=== PATIENT | female | born 2000 | race Caucasian/White ===

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

== ENCOUNTER 2018-03-29 23:18 | Emergency (ER) | payer SELFPAY ==
[~2018-03-29] VITALS: Ht 170.2 cm; Wt 72.6 kg
[~2018-03-29 23:18] MED LIST changes: +CEPH-507 PO; +PRD20T PO
[2018-03-29 23:22] VITALS: BP 108/79
[2018-03-29] MEDS ORDERED: LACTATED RINGERS 1,000 ML IV ONE (23:28)
[2018-03-29] MEDS ORDERED: TETANUS,DIPTH,PERTUSS P/F (BOOSTRIX) 0.5 ML VIAL IM STA (23:28)
[2018-03-29 23:42] LABS: BASOPHILS # (AUTO) 0.1 10^3/uL (0.0-0.1); BASOPHILS % (AUTO) 1 % (0-10); EOSINOPHILS # (AUTO) 0.2 10^3/uL (0.0-0.3); EOSINOPHILS % (AUTO) 2 % (0-10); HEMATOCRIT 37 % (35-52); HEMOGLOBIN 13.5 G/DL (11.5-16.0); LYMPHOCYTES # (AUTO) 3.6 X 10^3 (1.0-4.0); LYMPHOCYTES % (AUTO) 41 % (12-44); MEAN CORPUSCULAR HEMOGLOBIN 31 PG (25-34); MEAN CORPUSCULAR HGB CONC 37 G/DL (32-36); MEAN CORPUSCULAR VOLUME 85 FL (80-99); MEAN PLATELET VOLUME 9.5 FL (7.4-10.4); MONOCYTES # (AUTO) 0.8 X 10^3 (0.0-1.0); MONOCYTES % (AUTO) 9 % (0-12); NEUTROPHILS # (AUTO) 4.1 X 10^3 (1.8-7.8); NEUTROPHILS % (AUTO) 47 % (42-75); PLATELET COUNT 270 10^3/uL (130-400); RED BLOOD COUNT 4.32 10^6/uL (4.35-5.85); RED CELL DISTRIBUTION WIDTH 13.2 % (10.0-14.5); WHITE BLOOD COUNT 8.7 10^3/uL (4.3-11.0)
[2018-03-29 23:58] LABS: ALANINE AMINOTRANSFERASE 14 U/L (0-55); ALBUMIN 4.4 GM/DL (3.2-4.5); ALKALINE PHOSPHATASE 69 U/L (40-136); AMYLASE 24 U/L (25-125); BILIRUBIN,TOTAL 0.5 MG/DL (0.1-1.0); BUN/CREATININE RATIO 12; CALCIUM 9.1 MG/DL (8.5-10.1); CARBON DIOXIDE 19 MMOL/L (21-32); CHLORIDE 110 MMOL/L (98-107); CREATININE SERUM 0.84 MG/DL (0.60-1.30); GFR ESTIMATED > 60; GLUCOSE 99 MG/DL (70-105); LIPASE 16 U/L (8-78); MAGNESIUM 2.5 MG/DL (1.8-2.4); POTASSIUM 3.4 MMOL/L (3.6-5.0); SODIUM 140 MMOL/L (135-145); TOTAL PROTEIN 6.6 GM/DL (6.4-8.2)
[2018-03-29 23:59] LABS: INR 1.1 (0.8-1.4); PROTHROMBIN TIME PATIENT 13.8 SEC (12.2-14.7)
[2018-03-30] MEDS ORDERED: RX-MUPIROCIN (BACTROBAN) 2% OINT 22 GM TUBE TOP STA (00:57)
[2018-03-30] MEDS ORDERED: RX-MUPIROCIN (BACTROBAN) 2% OINT 22 GM TUBE ONE (00:58)
[2018-03-30] MEDS ORDERED: NS 250 ML (IVPB) BAG IV ONE (01:15)
[2018-03-30] MEDS ORDERED: IOHEXOL 350 MG/ML 100 ML (OMNIPAQUE 350) VIAL IV ONE (01:15)
[2018-03-30 01:29] LABS: BILIRUBIN,URINE NEGATIVE (NEGATIVE); CLARITY,URINE CLEAR; COLOR,URINE YELLOW; GLUCOSE, URINE (UA) NEGATIVE (NEGATIVE); KETONES,URINE 2+ (NEGATIVE); LEUKOCYTE ESTERASE ,URINE 1+ (NEGATIVE); NITRITE,URINE NEGATIVE (NEGATIVE); PH,URINE 7 (5-9); PROTEIN,URINE 2+ (NEGATIVE); UROBILINOGEN,URINE 1 MG/DL (NORMAL)
[2018-03-30 01:31] LABS: BACTERIA,URINE TRACE /HPF; WBC,URINE 0-2 /HPF
[2018-03-30 01:37] LABS: AMPHETAMINE SCREEN, URINE POSITIVE (NEGATIVE); BARBITURATE SCREEN URINE NEGATIVE (NEGATIVE); BENZODIAZEPINES SCREEN URINE NEGATIVE (NEGATIVE); CANNABINOID SCREEN, URINE NEGATIVE (NEGATIVE); COCAINE SCREEN URINE NEGATIVE (NEGATIVE); METHADONE STAT NEGATIVE (NEGATIVE); METHAMPHETAMINE SCREEN URINE S POSITIVE (NEGATIVE); OPIATE SCREEN URINE NEGATIVE (NEGATIVE); OXYCODONE STAT NEGATIVE (NEGATIVE); PROPOXYPHENE STAT NEGATIVE (NEGATIVE); TRICYCLIC ANTIDEPRESSANTS SCRE NEGATIVE (NEGATIVE)
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
[2018-03-30] MEDS ORDERED: MUPI1OIN6 TP (01:42)
[2018-03-30] MEDS ORDERED: SULF1TAB35 PO (01:42)
[2018-03-30] MEDS ORDERED: NAPR-915 PO (01:42)
[2018-03-30] MEDS ORDERED: CYCL10TA9 PO (01:42)
[2018-03-30] MEDS ORDERED: KETOROLAC 30 MG/ML VIAL IVP ONE (01:45)
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
== END 2018-03-30 03:26 | disposition home or self-care (01) ==
LOC: EDUNIT# 23:18 → ER 23:19
DX: S09.90XA Unspecified injury of head, initial encounter (principal); S16.1XXA Strain of muscle, fascia and tendon at neck level, initial encounter; S23.3XXA Sprain of ligaments of thoracic spine, initial encounter; S39.012A Strain of muscle, fascia and tendon of lower back, initial encounter; S30.1XXA Contusion of abdominal wall, initial encounter; S50.12XA Contusion of left forearm, initial encounter; S20.219A Contusion of unspecified front wall of thorax, initial encounter; S70.02XA Contusion of left hip, initial encounter; F19.10 Other psychoactive substance abuse, uncomplicated; F15.10 Other stimulant abuse, uncomplicated; F32.9 Major depressive disorder, single episode, unspecified; Z23 Encounter for immunization; Z79.52 Long term (current) use of systemic steroids; V18.4XXA Pedal cycle driver injured in noncollision transport accident in traffic accident, initial encounter
CPT/HCPCS: 36415; 70450; 71045; 71260; 72125; 72128; 72131; 72170; 73080; 73090; 73552; 74177; 80053; 80306; 80320; 81000; 82150; 83690; 83735; 84484; 84703; 85025; 85610; 85730; 90471; 90715; 96361; 96374

== ENCOUNTER 2018-04-13 08:57 | Emergency (ER) | payer SELFPAY ==
[~2018-04-13] VITALS: Ht 152.4 cm; Wt 65.8 kg
[~2018-04-13 08:57] MED LIST changes: +CYCL10TA9 PO; +MUPI1OIN6 TP; +NAPR-915 PO; +SULF1TAB35 PO
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
[2018-04-13 09:52] LABS: AMPHETAMINE SCREEN, URINE POSITIVE (NEGATIVE); BARBITURATE SCREEN URINE NEGATIVE (NEGATIVE); BENZODIAZEPINES SCREEN URINE NEGATIVE (NEGATIVE); CANNABINOID SCREEN, URINE NEGATIVE (NEGATIVE); COCAINE SCREEN URINE NEGATIVE (NEGATIVE); METHADONE STAT NEGATIVE (NEGATIVE); METHAMPHETAMINE SCREEN URINE S POSITIVE (NEGATIVE); OPIATE SCREEN URINE NEGATIVE (NEGATIVE); OXYCODONE STAT NEGATIVE (NEGATIVE); PROPOXYPHENE STAT NEGATIVE (NEGATIVE); TRICYCLIC ANTIDEPRESSANTS SCRE NEGATIVE (NEGATIVE)
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
[2018-04-13] MEDS ORDERED: MUPI1OIN6 TP (11:21)
[2018-04-13] MEDS ORDERED: SULF1TAB35 PO (11:21)
== END 2018-04-13 11:41 | disposition home or self-care (01) ==
LOC: EDUNIT# 08:57 → ER 08:58
DX: S50.312D Abrasion of left elbow, subsequent encounter (principal); S50.812D Abrasion of left forearm, subsequent encounter; F32.9 Major depressive disorder, single episode, unspecified; F12.10 Cannabis abuse, uncomplicated; F17.210 Nicotine dependence, cigarettes, uncomplicated; Z79.52 Long term (current) use of systemic steroids; V19.9XXD Pedal cyclist (driver) (passenger) injured in unspecified traffic accident, subsequent encounter
CPT/HCPCS: 73030; 73060; 73080; 80306; 84703

== ENCOUNTER 2018-10-18 17:26 | Emergency (ER) | payer SELFPAY ==
[~2018-10-18] VITALS: Ht 170.2 cm; Wt 65.8 kg
--- NOTE | 2018-10-18 17:54 | ED Abdominal Pain ---
General Chief Complaint: Abdominal/GI Problems Stated Complaint: ABD PAIN Source of Information: Patient Exam Limitations: No Limitations History of Present Illness Date Seen by Provider: Oct 18, 2018 Time Seen by Provider: 17:53 Initial Comments To ER, and by her boyfriend with reports of suprapubic abdominal pain that began earlier today during intercourse. No vaginal discharge. No fevers or chills. No nausea or vomiting. No history of this. She is concerned about the possibility of an STD. Timing/Duration: 1-2 Days Severity/Quality: Cramping Location: Suprapubic Radiation: No Radiation Activities at Onset: None Associated Symptoms: Denies Symptoms Allergies and Home Medications Allergies Coded Allergies: No Known Drug Allergies (Verified , 03/30/18) Home Medications Cephalexin 500 Mg Capsule, 500 MG PO TID Prescribed by: ADITYA CAMPBELL on 11/20/171906 Cyclobenzaprine HCl 10 Mg Tablet, 10 MG PO Q8H Prescribed by: TERESA CARTER on 03/30/18141 Mupirocin 1 Gm Oin.pf.ann, 1 GM TP BID Prescribed by: TERESA CARTER on 03/30/18141 Mupirocin 1 Gm Oin.pf.ann, 1 GM TP BID Prescribed by: TERESA CARTER on 04/13/18 112 Naproxen 500 Mg Tablet, 500 MG PO BID Prescribed by: TERESA CARTER on 03/30/18141 Prednisone 20 Mg Tab, 40 MG PO DAILY Prescribed by: ADITYA CAMPBELL on 11/20/171906 Sulfamethoxazole/Trimethoprim 1 Each Tablet, 1 EACH PO BID Prescribed by: TERESA CARTER on 03/30/18141 Sulfamethoxazole/Trimethoprim 1 Each Tablet, 1 EACH PO BID Prescribed by: TERESA CARTER on 04/13/18 112 Patient Home Medication List Home Medication List Reviewed: Yes Review of Systems Review of Systems Constitutional: see HPI EENTM: No Symptoms Reported Respiratory: No Symptoms Reported Cardiovascular: No Symptoms Reported Gastrointestinal: See HPI, Abdominal Pain; Denies Constipated, Denies Diarrhea , Denies Nausea Genitourinary: No Symptoms Reported; Denies Discharge, Denies Drainage Musculoskeletal: no symptoms reported Skin: no symptoms reported Psychiatric/Neurological: No Symptoms Reported Endocrine: No Symptoms Reported Hematologic/Lymphatic: No Symptoms Reported Past Etapjyr-Nafukb-Stznyh Hx Patient Social History Drug of Choice: + IV METH USE Type Used: Cigarettes 2nd Hand Smoke Exposure: Yes Recent Foreign Travel: No Contact w/Someone Who Travel: No Recent Hopitalizations: No Immunizations Up To Date Tetanus Booster (TDap): Less than 5yrs Seasonal Allergies Seasonal Allergies: No Past Medical History Surgeries: No Respiratory: No Cardiac: No Neurological: No Reproductive Disorders: No Genitourinary: No Gastrointestinal: No Musculoskeletal: No Endocrine: No HEENT: No Cancer: No Psychosocial: Yes (SUBSTANCE ABUSE) Depression Integumentary: Yes (folliculitis from bikini area shaving) Recent Skin Changes Blood Disorders: No Physical Exam Vital Signs Vital Signs - First Documented 10/18/18 17:35 Temp 98.7 Pulse 74 Resp 16 B/P (MAP) 98/66 Pulse Ox 99 Capillary Refill : Height/Weight/BMI Height: 5'7.00" Weight: 145lbs. oz. 65.249344xn; 21.09 BMI Method:Stated General Appearance: WD/WN, no apparent distress HEENT: PERRL/EOMI, normal ENT inspection Respiratory: no respiratory distress, no accessory muscle use Gastrointestinal: normal bowel sounds, soft, tenderness (suprapubic) Extremities: normal range of motion, non-tender Pelvic: other (pelvic exam done with general RN at the bedside. There is a clear whitish material in the vaginal vault. No cervical motion tenderness. The cervix is friable no other vaginal lesions are seen.) Neurologic/Psychiatric: alert, normal mood/affect, oriented x 3 Skin: normal color, warm/dry Progress/Results/Core Measures Results/Orders Lab Results Laboratory Tests Test 10/18/18 17:44 10/18/18 18:23 10/18/18 18:39 Range/Units White Blood Count 6.9 4.3-11.0 10^3/uL Red Blood Count 4.89 4.35-5.85 10^6/uL Hemoglobin 14.8 11.5-16.0 G/DL Hematocrit 44 35-52 % Mean Corpuscular Volume 90 80-99 FL Mean Corpuscular Hemoglobin 30 25-34 PG Mean Corpuscular Hemoglobin Concent 34 32-36 G/DL Red Cell Distribution Width 12.9 10.0-14.5 % Platelet Count 220 130-400 10^3/uL Mean Platelet Volume 9.4 7.4-10.4 FL Neutrophils (%) (Auto) 44 42-75 % Lymphocytes (%) (Auto) 48 H 12-44 % Monocytes (%) (Auto) 6 0-12 % Eosinophils (%) (Auto) 1 0-10 % Basophils (%) (Auto) 1 0-10 % Neutrophils # (Auto) 3.0 1.8-7.8 X 10^3 Lymphocytes # (Auto) 3.4 1.0-4.0 X 10^3 Monocytes # (Auto) 0.4 0.0-1.0 X 10^3 Eosinophils # (Auto) 0.1 0.0-0.3 10^3/uL Basophils # (Auto) 0.1 0.0-0.1 10^3/uL Sodium Level 140 135-145 MMOL/L Potassium Level 4.0 3.6-5.0 MMOL/L Chloride Level 109 H 98-107 MMOL/L Carbon Dioxide Level 23 21-32 MMOL/L Anion Gap 8 5-14 MMOL/L Blood Urea Nitrogen 8 7-18 MG/DL Creatinine 0.81 0.60-1.30 MG/DL Estimat Glomerular Filtration Rate > 60 BUN/Creatinine Ratio 10 Glucose Level 117 H 70-105 MG/DL Calcium Level 9.1 8.5-10.1 MG/DL Corrected Calcium 9.0 8.5-10.1 MG/DL Total Bilirubin 0.2 0.1-1.0 MG/DL Aspartate Amino Transf (AST/SGOT) 15 5-34 U/L Alanine Aminotransferase (ALT/SGPT) 11 0-55 U/L Alkaline Phosphatase 79 40-136 U/L Total Protein 6.4 6.4-8.2 GM/DL Albumin 4.1 3.2-4.5 GM/DL Serum Test, Qualitative NEGATIVE NEGATIVE Urine Color YELLOW Urine Clarity SLIGHTLY CLOUDY Urine pH 5 5-9 Urine Specific [place] 1.030 H 1.016-1.022 Urine Protein NEGATIVE NEGATIVE Urine Glucose (UA) NEGATIVE NEGATIVE Urine Ketones NEGATIVE NEGATIVE Urine Nitrite NEGATIVE NEGATIVE Urine Bilirubin NEGATIVE NEGATIVE Urine Urobilinogen NORMAL NORMAL MG/DL Urine Leukocyte Esterase 1+ H NEGATIVE Urine RBC (Auto) NEGATIVE NEGATIVE Urine RBC NONE /HPF Urine WBC 5-10 H /HPF Urine Squamous Epithelial Cells 0-5 /HPF Urine Crystals NONE /LPF Urine Bacteria FEW H /HPF Urine Casts NONE /LPF Urine Mucus MODERATE H /LPF Urine Culture Indicated YES My Orders Orders - STARLA PEARSON APRN Ua Culture If Indicated (10/18/18 17:47) Drug Screen Stat (Urine) (10/18/18 17:47) Cbc With Automated Diff (10/18/18 17:47) Comprehensive Metabolic Panel (10/18/18 17:47) Iv Heplock-Insert (Order) (10/18/18 17:47) Hcg,Qualitative Serum (10/18/18 17:47) Wet Prep (10/18/18 17:55) Neisseria Gonorrhea Swab (10/18/18 17:55) Genital Culture (10/18/18 17:55) Chlamydia Trachomatis Swab (10/18/18 17:55) Ceftriaxone For Iv Use (Rocephin For I (10/18/18 18:30) Azithromycin Tablet (Zithromax Tablet) (10/18/18 18:30) Urine Culture (10/18/18 18:39) Medications Given in ED Current Medications Medications Dose Ordered Sig/Dayana Route Start Time Stop Time Status Last Admin Dose Admin Ceftriaxone Sodium 1000 mg/ Sterile Water 10 ml @ 200 mls/hr ONCE ONCE IV 10/18/18 18:30 10/18/18 18:32 DC 10/18/18 18:40 200 MLS/HR Vital Signs/I&O 10/18/18 17:35 Temp 98.7 Pulse 74 Resp 16 B/P (MAP) 98/66 Pulse Ox 99 Departure Impression Primary Impression: Lower abdominal pain Disposition: HOME, SELF-CARE Condition: Stable Departure-Patient Inst. Decision time for Depature: 18:37 Referrals: [facility] (PCP/Family) Primary Care Physician Patient Instructions: NO INSTRUCTIONS GIVEN Add. Discharge Instructions: 1. The STD results take about a week to come back. Sexual partners should be tested at their primary care provider clinic or the [facility]. Return to ER for worsening pain, fevers or other concerns. All discharge instructions reviewed with patient and/or family. Voiced understanding. STARLA PEARSON APRN Oct 18, 2018 17:54
[2018-10-18 17:56] LABS: BASOPHILS # (AUTO) 0.1 10^3/uL (0.0-0.1); BASOPHILS % (AUTO) 1 % (0-10); EOSINOPHILS # (AUTO) 0.1 10^3/uL (0.0-0.3); EOSINOPHILS % (AUTO) 1 % (0-10); HEMATOCRIT 44 % (35-52); HEMOGLOBIN 14.8 G/DL (11.5-16.0); LYMPHOCYTES # (AUTO) 3.4 X 10^3 (1.0-4.0); LYMPHOCYTES % (AUTO) 48 % (12-44); MEAN CORPUSCULAR HEMOGLOBIN 30 PG (25-34); MEAN CORPUSCULAR HGB CONC 34 G/DL (32-36); MEAN CORPUSCULAR VOLUME 90 FL (80-99); MEAN PLATELET VOLUME 9.4 FL (7.4-10.4); MONOCYTES # (AUTO) 0.4 X 10^3 (0.0-1.0); MONOCYTES % (AUTO) 6 % (0-12); NEUTROPHILS % (AUTO) 44 % (42-75); PLATELET COUNT 220 10^3/uL (130-400); RED CELL DISTRIBUTION WIDTH 12.9 % (10.0-14.5); WHITE BLOOD COUNT 6.9 10^3/uL (4.3-11.0)
[2018-10-18 18:10] LABS: ALANINE AMINOTRANSFERASE 11 U/L (0-55); ALBUMIN 4.1 GM/DL (3.2-4.5); ALKALINE PHOSPHATASE 79 U/L (40-136); BILIRUBIN,TOTAL 0.2 MG/DL (0.1-1.0); BUN/CREATININE RATIO 10; CALCIUM 9.1 MG/DL (8.5-10.1); CARBON DIOXIDE 23 MMOL/L (21-32); CHLORIDE 109 MMOL/L (98-107); CREATININE SERUM 0.81 MG/DL (0.60-1.30); GFR ESTIMATED > 60; GLUCOSE 117 MG/DL (70-105); SODIUM 140 MMOL/L (135-145); TOTAL PROTEIN 6.4 GM/DL (6.4-8.2)
[2018-10-18] MEDS ORDERED: AZITHROMYCIN 250 MG TAB (ZITHROMAX) PO SCH (18:30)
[2018-10-18] MEDS ORDERED: cefTRIAXone FOR IV USE 1,000 MG in WATER (STERILE) FOR INJECTION 10 ML IV ONE (18:30)
[2018-10-18 18:44] LABS: BILIRUBIN,URINE NEGATIVE (NEGATIVE); CLARITY,URINE SLIGHTLY CLOUDY; COLOR,URINE YELLOW; GLUCOSE, URINE (UA) NEGATIVE (NEGATIVE); KETONES,URINE NEGATIVE (NEGATIVE); LEUKOCYTE ESTERASE ,URINE 1+ (NEGATIVE); NITRITE,URINE NEGATIVE (NEGATIVE); PH,URINE 5 (5-9); PROTEIN,URINE NEGATIVE (NEGATIVE); UROBILINOGEN,URINE NORMAL (NORMAL)
[2018-10-18 18:55] LABS: BACTERIA,URINE FEW /HPF; SQUAMOUS EPITHELIAL CELL,UR 0-5 /HPF
[2018-10-18 19:17] LABS: AMPHETAMINE SCREEN, URINE POSITIVE (NEGATIVE); BARBITURATE SCREEN URINE NEGATIVE (NEGATIVE); BENZODIAZEPINES SCREEN URINE NEGATIVE (NEGATIVE); CANNABINOID SCREEN, URINE NEGATIVE (NEGATIVE); COCAINE SCREEN URINE NEGATIVE (NEGATIVE); METHADONE STAT NEGATIVE (NEGATIVE); METHAMPHETAMINE SCREEN URINE S POSITIVE (NEGATIVE); OPIATE SCREEN URINE NEGATIVE (NEGATIVE); OXYCODONE STAT NEGATIVE (NEGATIVE); PROPOXYPHENE STAT NEGATIVE (NEGATIVE); TRICYCLIC ANTIDEPRESSANTS SCRE NEGATIVE (NEGATIVE)
[2018-10-24] MEDS ORDERED: SULF1TAB35 PO (13:49)
== END 2018-10-18 19:04 | disposition home or self-care (01) ==
LOC: EDUNIT# 17:26 → ER 17:27
DX: R10.30 Lower abdominal pain, unspecified (principal); F32.9 Major depressive disorder, single episode, unspecified; Z79.52 Long term (current) use of systemic steroids; Z77.22 Contact with and (suspected) exposure to environmental tobacco smoke (acute) (chronic)
CPT/HCPCS: 36415; 80053; 80306; 81000; 84703; 85025; 87070; 87077; 87088; 87186; 87205; 87210; 87491; 87591; 96374; 99284

== ENCOUNTER 2019-08-25 12:30 | Emergency (ER) | payer SELFPAY ==
[~2019-08-25] VITALS: Ht 170 cm; Wt 67.1 kg
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
[2019-08-25 13:34] VITALS: BP 128/84
== END 2019-08-25 13:34 | disposition home or self-care (01) ==
LOC: EDUNIT# 12:30 → ER 12:30
DX: S61.012A Laceration without foreign body of left thumb without damage to nail, initial encounter (principal); F17.210 Nicotine dependence, cigarettes, uncomplicated; Z79.52 Long term (current) use of systemic steroids; W26.0XXA Contact with knife, initial encounter